=== PATIENT | male | born 1955 | race Caucasian/White ===

== ENCOUNTER 2016-02-20 08:36 | Day surgery (SDC) | payer MEDICARE ==
[~2016-02-20 08:36] MED LIST: FENTANYL 250 MCG/5 ML AMP IV PRN; LACTATED RINGERS 1,000 ML IV SCH; MIDAZOLAM HCL 5 MG/5 ML VIAL IV PRN
[2016-02-20] MEDS ORDERED: LACTATED RINGERS 1,000 ML ONE (08:42)
[2016-02-20] MEDS ORDERED: IV START KIT ONE (08:42)
[2016-02-20] MEDS ORDERED: MIDAZOLAM HCL 5 MG/5 ML VIAL ONE (09:59)
[2016-02-20] MEDS ORDERED: FENTANYL 5 ML ONE (09:59)
== END 2016-02-20 11:15 | disposition home or self-care (01) ==
LOC: SDC 08:36
PROVIDERS: ATTEND Internal Medicine Gastroenterology
PROC: 0DJD8ZZ Inspection of Lower Intestinal Tract, Via Natural or Artificial Opening Endoscopic (ICD-10-PCS; principal; 2016-02-20)
DX: Z12.11 Encounter for screening for malignant neoplasm of colon (principal); Z72.0 Tobacco use; Z88.8 Allergy status to other drugs, medicaments and biological substances
CPT/HCPCS: J3010; J2250; J7120; G0104